=== PATIENT | male | born 1960 ===

== ENCOUNTER 2017-12-18 05:00 | Day surgery (SDC) | payer OTHER ==
[~2017-12-18 05:00] MED LIST: ADALAT CC60 MG; AVAPRO300 MG PO; CARVEDILOL25 MG; CLONAZEPAM2 MG; COUMADIN3 MG; COUMADIN3 MG PO; COZAAR100 MG; Coreg PO; DIGOX125 MCG; FENOFIBRATE200 MG; GABAPENTIN800 MG; GLIPIZIDE10 MG/BOTT; HYDRALAZINE HCL25 MG PO; HumaLOG 100 UNIT/1 ML (3ML) SUBCUTANEO; INCRUSE ELLI62.5 MCG IH; LANOXIN125 MCG PO; LANTUS SOLOSTAR3 ML; LASIX40 MG; LEVO-T50 MCG; Lantus 1000 U/10 ML SUBCUTANEO; METFORMIN HCL1000 M1; NEURONTIN PO; PERCOCET 5/3251 TAB; PRAVASTATIN SOD40 MG; PROCARDIA90 MG/BLIS PO; SPIRONOLACTONE25 MG PO; Synthroid PO; ZYLOPRIM300 MG; ZoCOR 40MG TABLET PO
== END 2017-12-18 12:30 | disposition home or self-care (01) ==
LOC: CIR.AMB 05:00
DX: M67.843 Other specified disorders of tendon, right hand (principal); J44.1 Chronic obstructive pulmonary disease with (acute) exacerbation; G47.36 Sleep related hypoventilation in conditions classified elsewhere; G47.33 Obstructive sleep apnea (adult) (pediatric); E11.65 Type 2 diabetes mellitus with hyperglycemia; R06.02 Shortness of breath; E66.8 Other obesity; Z87.891 Personal history of nicotine dependence; I48.0 Paroxysmal atrial fibrillation

== ENCOUNTER 2018-04-16 05:12 | Day surgery (SDC) | payer OTHER ==
[~2018-04-16 05:12] MED LIST changes: -LEVO-T50 MCG; +LEVO-T50 MCG PO
== END 2018-04-16 13:10 | disposition home or self-care (01) ==
LOC: CIR.AMB 05:12
DX: M67.842 Other specified disorders of synovium, left hand (principal)